=== PATIENT | female | born 1960 | race Caucasian/White ===

== ENCOUNTER 2024-02-29 06:07 | Outpatient (CLI) | payer MEDICARE, MEDICAID | END 2024-02-29 23:59 | disposition home or self-care (01) | LOC: MRI02 06:07 | PROVIDERS: ATTEND Family Medicine Sports Medicine | DX: M75.111 Incomplete rotator cuff tear or rupture of right shoulder, not specified as traumatic (principal); M75.31 Calcific tendinitis of right shoulder; M89.311 Hypertrophy of bone, right shoulder; M25.511 Pain in right shoulder | CPT/HCPCS: 73221 ==

== ENCOUNTER 2024-09-05 13:23 | Outpatient (CLI) | payer MEDICARE, MEDICAID | END 2024-09-05 23:59 | disposition home or self-care (01) | LOC: MRI02 13:23 | PROVIDERS: ATTEND Family Medicine Sports Medicine | DX: M47.812 Spondylosis without myelopathy or radiculopathy, cervical region (principal); M25.511 Pain in right shoulder; M75.30 Calcific tendinitis of unspecified shoulder; J98.4 Other disorders of lung; M25.78 Osteophyte, vertebrae; M43.14 Spondylolisthesis, thoracic region; M43.13 Spondylolisthesis, cervicothoracic region | CPT/HCPCS: 72141 ==